=== PATIENT | male | born 1980 | race Caucasian/White ===

== ENCOUNTER 2023-11-10 13:09 | Emergency (ER) | payer OTHER, MEDICAID, SELFPAY ==
--- NOTE | 2023-11-10 13:17 | ED_ITS ---
HPI - General Adult General Chief complaint: Extremity Injury, Upper Stated complaint: r wrist laceration work Time Seen by Provider: 11/10/23 13:14 Source: patient Mode of arrival: ambulatory Limitations: no limitations History of Present Illness ED Provider: Eladia PETIT HPI narrative: 43-year-old male presents with laceration to right wrist, unintentional, patient reports he was cutting sofia at work with a machete, sustaining a laceration. Unclear on last tetanus shot. Patient reports the area was bleeding a lot. He is not on blood thinners. Related Data Allergies Allergy/AdvReac Type Severity Reaction Status Date / Time No Known Allergies Allergy Verified 11/10/23 13:37 [No Known Allergies*] Review of Systems Review of Systems: Yes all other systems are reviewed and are negative PMFSH Past Medical History Attestation statement: The following information was validated with the patient. Source: old records reviewed and nursing notes reviewed Social History Social History Do you have a plan to hurt others: No Plan Physical Exam ED Vital Signs: BMI result Body Mass Index 26.6 vss Appearance: Alert.? Oriented X3.? No acute distress.? Head: Normocephalic, atraumatic, no step-offs or deformities Eyes: Pupils equal, round and reactive to light.? ENT: Pharynx normal.? Neck: Normal inspection.? Neck supple.? CVS: Normal heart rate and rhythm.? Pulses normal.? Respiratory: No respiratory distress.? Breath sounds normal.? Abdomen: Soft and nontender.? Skin: Skin warm and dry.? Normal skin color.? Normal skin turgor.? + 4 cm laceration to right wrist. full rom to R wrist no visualized ligaments or tendons. Bleeding a little but not pulsing blood. 2+ radial pulses b/l. no wrist drop b/l. Normal cap refil b/l. Extremities: No lower extremity edema.? No calf ttp. 5/5 strength to bilateral upper and lower extremities Neuro: Oriented X 3.? No motor deficit.? No sensory deficit. CN 2-12 intact Course Course Course Narrative: RME performed by Ana Cristina Galarza PA-C. Patient is a 43 year old assigned male at presenting to the emergency department with a right forearm laceration. Patient states he accidentally put his right forearm down on a machete while he was cutting sofia. Detailed physical exam and review of systems are deferred to the manager primary care. Patient placed back in the waiting room pending room availability. Reevaluation(s) Reevaluation #1: 6, 4-[address] Patient tolerated procedure well. Minimal blood loss. Time: 13:45 Reevaluation #2: Educated patient on diagnosis and treatment plan, answered all question, patient verbalizes understanding. At this time patient will be discharged home, advised to return with new or worsening symptoms. Educated on worrisome signs and symptoms and when to return. At this time I feel comfortable discharge home. Time: 13:45 Medical Decision Making Medical Decision Making MDM Narrative: 43-year-old male presents with laceration to right wrist while cutting sofia accidentally. Physical exam + 4 cm laceration to right wrist. full rom to R wrist no visualized ligaments or tendons. Bleeding a little but not pulsing blood. 2+ radial pulses b/l. no wrist drop b/l. Normal cap refil b/l. History and physical exam concerning for accidental simple laceration. No signs of complex lack. No signs of ligament or tendon injury. No signs of neurovascular compromise, fracture, dislocation, acute threat to limb. Plan irrigation with saline then suturing. Will give tetanus Differential Diagnosis Differential Diagnoses: The differential diagnosis associated with the presentation includes History and physical exam concerning for accidental simple laceration. No signs of complex lack. No signs of ligament or tendon injury. No signs of neurovascular compromise, fracture, dislocation, acute threat to limb. Admission/Observation Consideration of admission/observation: Escalation of care including admission/observation considered [facility] Prescription Management I considered prescription management with: Pain Medication (Educated ibuprofen and Tylenol use.) Critical Care Time Critical Care Time Critical Care Time: No Discharge Plan Discharge Clinical Impression: Laceration of right wrist Patient Disposition: Home, Self-Care Instructions: Laceration (ED) Additional Instructions: Take your medications as prescribed. If you were prescribed antibiotics today, it is important that you take your medication to their entirety, do not skip any doses, do not finish them early. Follow-up with your primary care provider this week. Return to the emergency department with new or worsening symptoms. Such as fevers, chills, chest pain, shortness of breath, nausea, vomiting, dizziness, headache, vision changes, lethargy In case of emergency call 911 Return in 7-10 days for suture removal. You can take ibuprofen every 6 hours Tylenol every 4 hours. Do not exceed maximum daily dose as listed on packaging. Referrals: Physician,Unknown J [Primary Care Provider] - 2 days Stand Alone Forms: Work/School Release Print Language: Jamaican
[2023-11-10 13:36] VITALS: BMI 26.6
--- NOTE | 2023-11-10 13:38 | PC.NURSE ---
6 sutures applied to pt's right forearm by provider. pt tolerated well.
[2023-11-10] MEDS: Diphth,Pertus(ACell),Tet Adult 0.5 ML SYRINGE IM (13:42)
[2023-11-10] MEDS: Bacitracin Oint 0.9 GM PACKET 1 APPL TOPICAL (13:42)
--- NOTE | 2023-11-10 13:44 | PC.NURSE ---
tetanus shot administered per provider order. affected area being cleaned by tech.
[2023-11-10 13:59] VITALS: BP 136/87; PULSE 68; RESP 16; TEMP 36.9; O2SAT 99
[2023-11-10 14:23] VITALS: BP 136/87; PULSE 68; RESP 16; TEMP 36.9; O2SAT 99
== END 2023-11-10 14:23 | disposition home or self-care (01) ==
PROVIDERS: Emergency Provider Emergency Medicine
DX: S51.811A Laceration without foreign body of right forearm, initial encounter (principal); W26.0XXA Contact with knife, initial encounter; Y93.89 Activity, other specified; Y92.513 Shop (commercial) as the place of occurrence of the external cause; Y99.0 Civilian activity done for income or pay; Z23 Encounter for immunization
CPT/HCPCS: 12002; 90471; 90715; 99282; 99284

== ENCOUNTER 2024-02-18 09:59 | Outpatient (REF) | payer OTHER, MEDICAID, SELFPAY ==
[2024-02-18 14:08] LABS: MANUAL DIFF FLAG NO
[2024-02-18 14:11] LABS: Basophils Percent Auto 0.4 % (0-2); Eosinophils Absolute Auto 0.1 X10*3/uL (0.0-0.4); Eosinophils Percent Auto 2.6 % (0-4); Hematocrit 43.4 % (42.0-52.0); Hemoglobin 14.1 g/dl (14.0-18.0); Imm Gran Abs Auto 0.02 X10*3/uL (0.00-0.03); Imm Gran Pct Auto 0.4 % (0.0-0.4); Lymphocytes Absolute Auto 1.6 X10*3/uL (1.2-4.9); Lymphocytes Percent Auto 32.9 % (20-40); Mean Corpuscular HGB Conc 32.5 g/dl (31.0-36.0); Mean Corpuscular Hemoglobin 30.1 pg (27.0-33.0); Mean Corpuscular Volume 92.7 fL (80.0-98.0); Monocytes Absolute Auto 0.4 X10*3/uL (0.1-1.2); Monocytes Percent Auto 7.3 % (2-11); Neutrophils Absolute Auto 2.8 x10*3/uL (2.0-8.3); Neutrophils Percent Auto 56.4 % (45-73); Platelet Count 242 X10*3/uL (160-400); Red Blood Count 4.68 X10*6/uL (4.60-5.80); Red Cell Distribution Width 12.7 % (11.0-16.0); White Blood Count 4.9 X10*3/uL (4.8-10.8)
[2024-02-18 14:40] LABS: Alanine Aminotransferase 25 U/L (0-40); Albumin Level 4.4 g/dL (3.5-5.0); Alkaline Phosphatase 64 U/L (39-117); Anion Gap 12 (12-20); Aspartate Amino Transferase 39 U/L (5-37); Bilirubin Total 0.5 mg/dL (0.0-1.0); Blood Urea Nitrogen 12 mg/dL (9-16); Calcium 9.8 mg/dL (8.4-10.2); Carbon Dioxide 27 mmol/L (22-29); Chloride 105 mmol/L (96-108); Cholesterol 217 mg/dL (<200); Estimated Glomerular Filt Rate > 60; Glucose Random 88 mg/dL (60-115); HDL Cholesterol 43 mg/dL (>40); LDL Cholesterol Calculated 155 mg/dL (<100); Potassium 4.3 mmol/L (3.3-5.1); Sodium 140 mmol/L (135-145); Total Protein 7.6 g/dL (6.5-8.0); Triglycerides 96 mg/dL (<150)
[2024-02-18 14:56] LABS: TSH reflex Free T4 0.47 uIU/mL (0.32-4.0)
[2024-02-19 08:38] LABS: HIV AB/AG Nonreactive (Nonreactive); HIV Num 1 0.07 S/CO (0.00-0.99); ~HepC Num1 0.16 S/CO (0.00-0.79); ~Hepatitis C Antibody Nonreactive (Nonreactive)
== END 2024-02-18 10:00 | disposition home or self-care (01) ==
LOC: HO.CHCLDS 09:59
PROVIDERS: Visit Provider Internal Medicine
DX: E66.3 Overweight (principal)
CPT/HCPCS: 36415; 80053; 80061; 84443; 85025; 86803; 87389

== ENCOUNTER 2024-06-09 08:32 | Outpatient (REF) | payer OTHER, MEDICAID, SELFPAY ==
--- NOTE | ~2024-06-09 | XR_ITS ---
EXAMINATION: XR KNEE, LEFT CLINICAL INFORMATION: left knee pain. COMPARISON: X-ray dated February 12, 2015 report. Images are not available on PACS. TECHNIQUE: Four views of the left knee. FINDINGS: No acute cortical disruption or malalignment. No lytic or blastic lesions. There is preservation of the joint spaces. No suprapatellar bursa joint effusion. No metallic or radiopaque foreign body. No subcutaneous emphysema. XR/XR knee LT 4V IMPRESSION: Normal left knee. Electronically signed by: Jaxon Sosa MD 06/10/2024 08:51 AM [facility]
--- OUTSIDE RECORDS SUMMARY | 2024-06-09 08:59 | XMS_ITS | Encounter Summary ---
Author Organization [employer] [facility] Address [address] [place] [address] [address] [place] [address] Care Team Providers Care Diet Supervisor Name Role Phone Harry Miles MD Primary Care Prov ider Encounter Details Date Type Department Care Team (Latest Contact Info) Description 12/01/2020 Abstract [facility] CONVERSIONS Dental, Provider, DDS Social History Tobacco Use Types Packs/Day Years Used Date Smoking Tobacco: Never Assessed Sex and Gender Information Value Date Recorded Sex Assigned at Male 02/06/2022 10:32 AM EDT Legal Sex Male 10:32 AM EDT Gender Identity Male 02/06/2022 10:32 AM EDT Sexual Orientation Straight 07/31/2022 9: 21 AM EDT documented as of this encounter Plan of Treatment Upcoming Encounters Date Type Department Care Team (Late st Contact Info) Description 06/30/2024 11:00 AM EDT Office Visit [facility] CHC ADULT DENTAL [address] [place] [address] Jaron More DMD [address] [place] [address] documented as of this encounter Visit Diagnoses Not on filedocumented in this encounter Care Teams Diet Supervisor Relationship Specialty Start Date End Date Harry Miles MD [address] [place] [address] PCP - General Internal Medicine 12/22/21 documented as of this encounter
--- OUTSIDE RECORDS SUMMARY | 2024-06-09 08:59 | XMS_ITS | Encounter Summary ---
Author Organization [employer] Address [address] [facility] [address] [place] [address] Care Team Providers Care Underwear Cutter Name Role Phone Harry Miles MD Primary Care Prov ider Reason for Visit * Reason Comments Dentures Encounter Details Date Type Department Care Team ([facility] Contact Info) Description 05/19/2024 11:00 AM EST Office Visit [facility] ADULT DENTAL [address] [place], [place] [phone] Jaron More, DMD [address] [place], [place] [phone] Partial edentulism, class I (Primary Dx) Social History Tobacco Use Types Packs/Day Years Used Date Smoking Tobacco: Never Passive Smoke Exposure: Never Smokeless Tobacco: Never Alcohol Use Standard Drinks/Week Comments Yes 1 (1 standard drink = 0.6 oz pur e alcohol) Depression Answer Date Recorded Patient Health Questionnaire-9 Score 3 02/18/2024 Patient Health Questionnaire-9 Score 3 02/18/2024 Last PHQ-9: Questionnaire Data Not on file 1 04/19/2023 Housing Stability Answer Date Recorded What is your housing situation today? I have [place]ques [place]ado 02/11/[address] you li ve. Do you have problems with any of the following? None of the above 02/11/2024 Food Insecurity Answer Date Recorded Within the past 12 months, y ou worried that your food would run out before you got money to buy more: Never True 02/11/2024 Within the past 12 months,th e food you bought just didn't last and you didn't have enough money to get more: Never True 07/2023 Transportation Answer Date Recorded In the past 12 months, has l ack of transportation kept you from medical appts, meetings, work or from getting things needed for daily living? No 02/11/2024 Utilities Answer Date Recorded In the past 12 months, has t he electric, gas, oil or water company threatened to shut off services in your home? No 02/11/2024 Depression Answer Date Recorded Patient Health Questionnaire-2 Score 1 02/18/2024 Internet Access Answer Date Recorded Internet Access Q1 Yes 02/11/2024 Internet Access Q2 Not on file 02/11/2024 Sex and Gender Information Value Date Recorded Sex Assigned at Male 02/06/2022 10:32 AM EDT Legal Sex Male 10:32 AM EDT Gender Identity Male 02/06/2022 10:32 AM EDT Sexual Orientation Straight 07/31/2022 9: 21 AM EDT documented as of this encounter Progress Notes * Jaron More DMD - 05/19/2024 11:00 AM EST Patient ID: Hugh Chandler is a 43 y.o. male. Time Out: Timeout Date: 05/19/24, Timeout Time: 1106 Location: [facility] Tooth: Mandible Procedure: Dentures Verified the above with patient, medical clerical assistant, and provider. Confirmed via patient's chart, intraorally and by radiographs. Sustainability Officer: not applicable Chief Complaint Patient presents with Dentures Medical Hx: Vitals: There were no vitals taken for this visit. Medications, Med Hx reviewed with patient and updated in chart. Consent Obtained: The risks, benefits, indications, potential complications, and alternatives were explained to the patient and informed consent was obtained with good understanding. Treatment Provided: Dental procedures in this visit D5110 - WAX TRY IN (Completed) Service provider: Jaron More DMD Billing provider: Jaron More DMD [id number] - ADJUNCTIVE GENERAL SERVICES - PROFESSIONAL VISITS - CASE PRESENTATION, SUBSEQUENT TO DETAILED AND EXTENSIVE TREATMENT PLANNING (Completed) Service provider: Jaron More DMD Billing provider: Jaron More DMD Tried in denture(s) with teeth set in wax. -Evaluated for comfort, fit, phonetics, and stability (f, v, s, th sounds; swallow, yawn, etc) -Evaluated for satisfactory esthetics. -Occlusion verified; adjustments to tooth set up made as needed Patient accepts all aspects of prosthesis and consents to proceed with final processing. Sent to Lab for final processing. Lab used: [facility] Lab Due Date: 05/30 Patient discharged alert, oriented, and in stable condition. NV: denture deliver (will need to adjust occlusion) Adzing And Boring Machine Operator: Lucy Shelton Dentist: Jaron More DMD documented in this encounter Plan of Treatment Upcoming Encounters Date Type Department Care Team (Late st Contact Info) Description 06/30/2024 11:00 AM EDT Office Visit [facility] ADULT DENTAL [address] [place] [address] Jaron More DMD [address] [place] [address] Scheduled Orders Name Type Priority Associated Diagnoses Orde r Schedule DENTAL LAB DENTURES AND PARTIALS Dental Routine Ordered: 025 documented as of this encounter Procedures Procedure Name Priority Date/Time Associated Diagnosis Comments WAX TRY IN Routine 05/19/2024 11:00 AM EST Partial edentulism, class I CASE PRESENTATION, DETAILED AND EXTENSIVE TREATMENT PLANNING Routine 05/19/2024 11:00 AM EST Partial edentulism, class I documented in this encounter Visit Diagnoses Diagnosis Partial edentulism, class I- Primary documented in this encounter Additional Health Concerns Assessment Noted Time PHQ-9 Depression Total Score: 3 02/18/20 24 9:20 AM EST documented as of this encounter Care Teams Underwear Cutter Relationship Specialty Start Date End Date Harry Miles MD [address] [place] [address] PCP - General Internal Medicine 12/22/21 documented as of this encounter
--- OUTSIDE RECORDS SUMMARY | 2024-06-09 08:59 | XMS_ITS | Encounter Summary ---
Author Organization [employer] Address [address] [facility] 7t [place] [address] Care Team Providers Care Breadman Name Role Phone Harry Miles MD Primary Care Prov ider Encounter Details Date Type Department Care Team ([facility] st Contact Info) Description 02/19/2024 Orders Only [facility] CHC MED & PEDS [address] [place], [place] [phone] Harry Miles MD [address] [place] [address] Social History Tobacco Use Types Packs/Day Years [...] Description 06/30/2024 11:00 AM EDT Office Visit [facility] ADULT DENTAL [address] [place] [address] Jaron More, AYUSH [address] [place] [address] documented as of this encounter Visit Diagnoses Not on filedocumented in this encounter Additional Health Concerns Assessment Noted Time PHQ-9 Depression Total Score: 3 02/18/20 24 9:20 AM EST documented as of this encounter Care Teams Breadman Relationship Specialty Start Date End Date Harry Miles MD [address] [place] [address] PCP - General Internal Medicine 12/22/21 documented as of this encounter
--- OUTSIDE RECORDS SUMMARY | 2024-06-09 08:59 | XMS_ITS | Encounter Summary ---
Author Organization [employer] Address [address] [facility] [address] [place] [address] Care Team Providers Care Certified Athletic Trainer Name Role Phone Harry Miles MD Primary Care Prov ider Reason for Visit * Reason Onset Date Comments Nurse Triage 08/17/2023 Encounter Details Date Type Department Care Team (Late st Contact Info) Description 08/17/2023 Telephone [facility] [address] [place] [address] Harry Miles MD [address] [place], [place] [phone] Nurse Triage Social History Tobacco Use Types Packs/Day Years Used Date Smoking Tobacco: Never Passive Smoke Exposure: Never Smokeless Tobacco: Never Alcohol Use Standard Drinks/Week Comments Yes 1 (1 standard drink = 0.6 oz pur e alcohol) Sex and Gender Information Value Date Recorded Sex Assigned at Male 02/06/2022 10:32 AM EDT Legal Sex Male 10:32 AM EDT Gender Identity Male 02/06/2022 10:32 AM EDT Sexual Orientation Straight 07/31/2022 9: 21 AM EDT documented as of this encounter Miscellaneous Notes * Telephone Encounter - Jyotsna Zambrano RN - 08/22/2023 9:12 AM EDT TC X1 to pt for status check as it appears pt did not go to [facility]. No answer and VM not set up. * Telephone Encounter - Analia Yanez RN - 08/17/2023 2:49 PM EDT Call returned to Hugh Chandler to triage below. Reports having chest pain x 2 years. Per pt having left sided CP all day today not intermittent. Having some mild dizziness. Mild KWONG and fatigue. Pt alert, speaking in clear full sentences. Pt advised of disposition, agrees to [facility] ER now for exam torule out any cardiac involvement. Reviewed home care advise, ER precautions and reasons to call back. Protocol Used: Chest Pain (Adult) Protocol-Based Disposition: Call EMS 911 Now Sent to team for ER status check PRN. Positive Triage Questions: * Chest pain lasting longer than 5 minutes and over 44 years old * Chest pain lasting longer than 5 minutes, over 30 years old, and at least one cardiac risk factor(e.g., diabetes mellitus, high blood pressure, high cholesterol, smoker, or strong family history of heart disease) * All higher-acuity triage questions were negative Care Advice Discussed: * Reassurance and Education - Fleeting Chest Pains * Reasons To Call Back - Chest pain increases in frequency, duration or severity - Chest pain lasts over 5 minutes - Chest pains persist over 3 days - Difficulty breathing or unusual sweating occurs - You become worse * Telephone Encounter - Hi Martin - 08/17/2023 2:47 PM EDT Symptom: Chest Pain - Adult Outcome: Transfer to a nurse or provider NOW! Reason: Severe pain now The caller accepted this outcome documented in this encounter Plan of Treatment Upcoming Encounters Date Type Department Care Team (Late st Contact Info) Description 06/30/2024 11:00 AM EDT Office Visit [facility] ADULT DENTAL [address] [place] [address] Jaron More, DMD [address] [place] [address] documented as of this encounter Visit Diagnoses Not on filedocumented in this encounter Care Teams Certified Athletic Trainer Relationship Specialty Start Date End Date Harry Miles MD [address] [place] [address] PCP - General Internal Medicine 12/22/21 documented as of this encounter
--- OUTSIDE RECORDS SUMMARY | 2024-06-09 08:59 | XMS_ITS | Clinical Summary ---
Author Organization [employer] [facility] Address [address] [place] [address] Care Team Providers Care Food Safety Auditor Name Role Phone Harry Miles MD Primary Care Prov ider Allergies No known active allergies Medications No known medications Active Problems Problem Noted Date Diagnosed Date Chronic pain of left knee 02/18/2024 Assessment & Plan (02/18/2024 10:37 AM EST): Will send for left knee xray Avoid heavy lifting Apply cold pads, take tylenol/ibuprofen as needed Overweight (BMI 25.0-29.9) 02/18/2024 Assessment & Plan (02/18/2024 10:38 AM EST): Lab workup will be sent for evaluation of related conditions Physical exam 02/18/2024 Assessment & Plan (02/18/2024 10:39 AM EST): Unremarkable, vital signs are stable, no heart murmur, no thyroid nodules, chronic left knee pain xray will be ordered. Encounters Date Type Department Care Team Description 05/19/2024 11:00 AM EST Office Visit [facility] ADULT DENTAL [address] [place] [address] Jaron More, AYUSH Partial edentulism, class I (Primary Dx) 05/01/2024 3:20 PM EST Office Visit [facility] MED & PEDS [address], [place] [phone] Reanna Lincoln MD Blurry vision, bilateral (Primary Dx) 05/01/2024 Travel 04/25/2024 Telephone [facility] [address] [place] [address] Harry Miles MD Referral 04/22/2024 10:00 AM EST Office Visit [facility] ADULT DENTAL [address] [place] [address] Jaron More DMD Dental caries (Primary Dx); Partial edentulism, class I 03/24/2024 9:00 AM EST Office Visit [facility] ADULT DENTAL [address] [place] [address] Jaron More DMD Defective dental methodist (Primary Dx) from Last 3 Months Immunizations Name Administration Dates Next Due Influenza injectable quadrivalent preservative f ree 12/22/2021 Influenza, seasonal, injectable, preservative fr ee 02/18/2024 Tdap 11/10/2023,12/15/2016 Social History Tobacco Use Types Packs/Day Years [...] Orientation Straight 07/31/2022 9: 21 AM EDT Last Filed Vital Signs Vital Sign Reading Time Taken Comments Blood Pressure 134/80 05/01/2024 3:26 PM EST Pulse 60 05/01/2024 3:26 PM EST Temperature 36.6 ??C (97.8 ??F) 05/01/2024 3:26 PM ES T Respiratory Rate 20 05/01/2024 3:26 PM EST Oxygen Saturation 98% 05/01/2024 3:26 PM EST Inhaled Oxygen Concentration - - Weight 82.6 kg (182 lb) 05/01/2024 3:26 PM EST Height 172.7 cm (5' 8 ) 05/01/2024 3:26 PM EST Body Mass Index 27.67 05/01/2024 3:26 PM EST Plan of Treatment Upcoming Encounters Date Type Department Care Team (Late st Contact Info) Description 06/30/2024 11:00 AM EDT Office Visit [facility] ADULT DENTAL [address] [place] [address] Jaron More, DMD [address] [place] [address] Health Maintenance Due Date Last Done Comments CT Colonography 1978 Colonoscopy 1978 Colorectal Cancer Screening 1978 FIT DNA/Cologuard 1978 FIT 1978 FOBT 1978 Sigmoidoscopy 1978 Alcohol/Substance Use Screening 1990 Family Planning (PISQ) 1993 Hepatitis B Vaccines (1 of 3 - 19+ 3-dose series) 1997 COVID-19 Vaccine (2023-2 5 season) 2023 Dental Oral Exam 07/01/2024 01/01/2024, 07/31/2022 Dental Prophylaxis 07/01/2024 01/01/2024, 07/31/2022 Dental X-Ray: Bitewings 01/01/2025 01/01/20 24, 07/17/2023, 07/31/2022 SDOH Screening 02/10/2025 02/11/2024 Depression Screening 02/17/2025 02/18/2024, 02/18/2024 Tobacco Screening 05/19/2025 05/19/2024 Dental X-Ray: Full Mouth 01/01/2027 01/01/2024 Zoster Vaccines (1 of 2) 2028 Lipid Panel 02/17/2029 02/18/2024 DTaP/Tdap/Td Vaccines (3 - T d or Tdap) 11/09/2033 11/10/2023, 12/15/2016 RSV Patients and Patients Aged 60 years or older (1 - 1-dose 75+ series) 2053 HIV Screening Completed 02/18/2024 Hepatitis C Screening Completed 02/18/2024 Influenza Vaccine Completed 02/18/2024, 12/22/2021 HIB Vaccines Aged Out No longer eligi ble based on patient's age to complete this topic HPV Vaccines Aged Out No longer eligi ble based on patient's age to complete this topic Hepatitis A Vaccines Aged Out No long er eligible based on patient's age to complete this topic IPV Vaccines Aged Out No longer eligi ble based on patient's age to complete this topic Meningococcal Vaccine Aged Out No shante susi eligible based on patient's age to complete this topic Pneumococcal Vaccine: Pediatrics (0 to 5 Years) and At-Risk Patients (6 to 49) Years) Aged Out No longer eligible b ased on patient's age to complete this topic RSV under 20 months Aged Out No longe r eligible based on patient's age to complete this topic Rotavirus Vaccines Aged Out No longer eligible based on patient's age to complete this topic Procedures Procedure Name Priority Date/Time Associated Diagnosis Comments CASE PRESENTATION, DETAILED AND EXTENSIVE TREATMENT PLANNING Routine 05/19/2024 11:00 AM EST Partial edentulism, class I WAX TRY IN Routine 05/19/2024 11:00 AM EST Partial edentulism, class I CASE PRESENTATION, DETAILED AND EXTENSIVE TREATMENT PLANNING Routine 04/22/2024 10:00 AM EST Dental caries Partial edentulism, class I BITE REGISTRATION Routine 04/22/2024 10: 00 AM EST Partial edentulism, class I DENTURE IMPRESSION Routine 04/22/2024 10 :00 AM EST Partial edentulism, class I 14 MOD RESIN-BASED COMPOSITE - 3 SURF, POSTERIOR Routine 04/22/2024 10:00 AM EST Dental caries CASE PRESENTATION, DETAILED AND EXTENSIVE TREATMENT PLANNING Routine 03/24/2024 9:00 AM EST Defective dental methodist 10 F(V) RESIN-BASED COMPOSITE - 1 SURF, ANTERIOR Routine 03/24/2024 9:00 AM EST Defective dental methodist 11 F(V) RESIN-BASED COMPOSITE - 1 SURF, ANTERIOR Routine 03/24/2024 9:00 AM EST Defective dental methodist 20 B(V) RESIN-BASED COMPOSITE - 1 SURF, POSTERIOR Routine 03/24/2024 9:00 AM EST Defective dental methodist 12 B(V) RESIN-BASED COMPOSITE - 1 SURF, POSTERIOR Routine 03/24/2024 9:00 AM EST Defective dental methodist HEPATITIS C AB W/REFL TO HCV RNA, QN, PCR Routine 02/18/2024 10:00 AM EST Overweight (BMI 25.0-29.9) HIV 1/2 ANTIGEN/ANTIBODY, FOURTH GENERATION W/RFL Routine 02/18/2024 10:00 AM EST Overweight (BMI 25.0-29.9) LIPID PANEL, STANDARD Routine 02/18/2024 10:00 AM EST Overweight (BMI 25.0-29.9) PROPHYLAXIS - ADULT Routine 01/01/2024 2 :00 PM EDT Dental calculus Defective dental methodist Dental caries Open fracture of tooth, initial encounter INTRAORAL - COMPLETE SERIES OF RADIOGRAPHIC IMAGES Routine 01/01/2024 2:00 PM EDT Dental calculus Defective dental methodist Dental caries Open fracture of tooth, initial encounter PERIODIC ORAL EVALUATION - ESTABLISHED PATIENT Routine 01/01/2024 2:00 PM EDT Dental calculus Defective dental methodist Dental caries Open fracture of tooth, initial encounter from Last 3 Months or Most Recently Relevant to Health Maintenance Results * Hepatitis C Antibody with Reflex to HCV, RNA, Quantitative, Real-Time PCR (02/18/2024 10:00 AM EST) Hepatitis C Antibody Nonreactive Nonreactive [facility] Comment:Antibodies to HCV no t detected; does not exclude early acuteHCV infection. Blood Venous blood specimen / Unknown 02/18/2024 10:00 AM EST 02/18/2024 2:03 PM EST Harry Norris MD LAB BLOOD ORDERABL ES Final Result Performing Organization Address City/[facility]/ZIP Co de Phone Number [facility] [address] [place] [address] [phone] * HIV-1/2 Antigen and Antibodies, Fourth Generation, with Reflexes (02/18/2024 10:00 AM EST) HIV AB/AG Nonreactive Nonreactive [facility] Comment:HIV-1 p24 Ag and/or HIV-1/HIV-2 Ab not detected.A test result that is nonreactive does not exclude thepossibility of exposure to or infection with HIV-1 and/orHIV-2. Nonreactive results in this assay for individualswith prior exposure to HIV-1 and/or HIV-2 may be due toantigen and antibody levels that are below the limit ofdetection of this assay.The Voice Assist HIV Ag/Ab Combo assay result andsupplemental assay results should be interpreted inconjunction with the patient's clinical presentation,history and other laboratory results. If the results areinconsistent with clinical evidence, additional testing issuggested to confirm the result. Blood Venous blood specimen / Unknown 02/18/2024 10:00 AM EST 02/18/2024 2:03 PM EST us Harry Norris MD LAB BLOOD ORDERABL ES Final Result Performing Organization Address City/[facility]/ZIP Co de Phone Number [facility] [address] [place] [address] [phone] * (ABNORMAL) Lipid Panel, Standard (02/18/2024 10:00 AM EST) Triglycerides 96 <150 mg/dL [facility] Comment:Desirable Triglyceri de: less than 150 mg/dLBorderline High Triglyceride 150-199 mg/dLHigh Triglyceride: 200-499 mg/dLVery High Triglyceride: greater than or equal to 5OO mg/dL Cholesterol 217(H) <200 mg/dL [facility] Comment:Desirable Cholestero l: less than 200 mg/dLBorderline High Cholesterol: 200-239 mg/dLHigh Cholesterol: greater than 239 mg/dL LDL Cholesterol Calculated 155(H) <100 mg/dL [facility] Comment:Desirable LDL: less than 100 mg/dLNear Optimal/Above Optimal LDL: 110- 129 mg/dLBorderline High LDL: 130-159 mg/dLHigh LDL: 160-189 mg/dLVery High LDL: greater than or equal to 190 mg/dL HDL Cholesterol 43 >40 mg/dL [facility] Comment:Desirable HDL: great er than 40 mg/dL Note: This HDL assay may give artificially low results in patients with liver disease. Blood Venous blood specimen / Unknown 02/18/2024 10:00 AM EST 02/18/2024 2:03 PM EST us Harry Norris MD LAB BLOOD ORDERABL ES Final Result [facility] [address] [place] [address] [phone] from Last 3 Months or Most Recently Relevant to Health Maintenance Insurance [address] [place] [address] [facility] STAND ADULT Care Teams Food Safety Auditor Relationship Specialty Start Date End Date CliftonHarry Mustafa MD [address] [place] [address] [place] [id number] PCP - General Internal Medicine 12/22/21
== END 2024-06-09 08:33 | disposition home or self-care (01) ==
LOC: HO.HMGCX 08:32
PROVIDERS: PCP Internal Medicine; Visit Provider Internal Medicine
DX: M25.562 Pain in left knee (principal); G89.29 Other chronic pain
CPT/HCPCS: 73564

== ENCOUNTER → 2024-06-09 08:38 | Outpatient (BNV) | payer OTHER, MEDICAID, SELFPAY | PROVIDERS: PCP Internal Medicine; Visit Provider Radiology Diagnostic Radiology | DX: M25.562 Pain in left knee (principal) | CPT/HCPCS: 73564 ==

== ENCOUNTER 2024-06-15 13:42 | Emergency (ER) | payer MEDICAID, SELFPAY ==
--- NOTE | ~2024-06-15 | CT_ITS ---
CLINICAL HISTORY: headache CT head without contrast Comparison: None Findings: No intra-axial mass, midline shift, hydrocephalus, or acute hemorrhage. No significant atrophy-like change or white matter disease. Small focus of mucosal thickening within the right sphenoid sinus. No air-fluid levels. Clear mastoid air cells and middle ears. The orbits are within normal limits. No skull fracture. IMPRESSION: 1. No acute intracranial findings. This document has been electronically signed by: Olivia Garcia MD on 06/15/2024 15:23:42
--- NOTE | ~2024-06-15 | XR_ITS ---
CLINICAL HISTORY: Chest pain 1 view chest x-ray Comparison: None Findings: No consolidation or effusion. Heart size is normal. No acute fracture. IMPRESSION: 1. No acute findings. This document has been electronically signed by: Olivia Garcia MD on 06/15/2024 18:10:42
[2024-06-15 13:46] VITALS: BP 152/87; PULSE 93; RESP 18; TEMP 36.6; O2SAT 98; BMI 29.0
--- NOTE | 2024-06-15 13:51 | ECG_ITS ---
Test Reason : chest pain Blood Pressure : */* mmHG Vent. Rate : 71 BPM Atrial Rate : 71 BPM P-R Int : 136 ms QRS Dur : 82 ms QT Int : 370 ms P-R-T Axes : 31 -6 -5 degrees QTcB Int : 402 ms Normal sinus rhythm Normal ECG No previous ECGs available Referred By: Mejia Delgado Electronically Signed By: MATT PITT
--- NOTE | 2024-06-15 13:52 | ED.GENADULT ---
HPI - General Adult General Chief complaint: General Medical Stated complaint: headache and chest pain Time Seen by Provider: 06/15/24 18:43 Source: patient Mode of arrival: ambulatory Limitations: no limitations History of Present Illness ED Provider: Mejia Delgado [facility] narrative: 43 yold male with pmh of HTN presents to the ED for 5 days of headache and slight left sided chest pain. patient denies any loss of vision, slurred speech, paralysis of extremities, dizziness, nausea, vomiting, neck pain, or facial droop Related Data Previous Rx's ?Medication ?Instructions ?Recorded ketorolac 10 mg tablet 10 mg PO Q6H PRN pain 5 days #20 06/15/24 tabs Allergies Allergy/AdvReac Type Severity Reaction Status Date / Time No Known Allergies Allergy Verified 06/15/24 13:50 [No Known Allergies*] Review of Systems Review of Systems: headache and chest pain Yes all other systems are reviewed and are negative PENDING SALE TO [facility] Social History Social History Advance Directives: No Advance Directives Information Provided: No Physical Exam ED Vital Signs: Vital Signs - 24 hr 06/15/24 13:46 06/15/24 18:40 Temperature 98 F 97.9 F Pulse Rate 93 77 Respiratory Rate 18 20 Blood Pressure 152/87 H 137/90 H Pulse Oximetry 98 99 Oxygen Delivery Method Room Air Room Air BMI result Body Mass Index 29.0 Const General: cooperative, healthy appearing, comfortable, no acute distress, well developed, alert, awake and Physically active Orientation/consciousness: patient oriented x3 HENMT Head: Yes normal to inspection, Yes No palpable skull fracture present, Yes normocephalic and Yes atraumatic Ears: hearing grossly normal bilaterally, external ears normal, TM's normal bilaterally, TM normal on the right, TM normal on the left, EAC's normal, mastoids normal and no periauricular adenopathy Throat: Yes posterior oropharynx normal, Yes tonsils normal and Yes uvula midline Eyes General: appearance normal, both eyes and all related structures Visual Millard: normal visual millard by confrontation Alignment and Position: alignment normal Periorbital: periorbital findings normal Eyelids: Yes eyelids normal Conjunctivae: conjunctivae normal Sclerae: sclerae normal Corneas: corneas normal Pupils: Equal, round and reactive pupils present EOM: EOMs intact bilaterally Direct Ophthalmoscopy: normal light reflex Neck Neck: Yes normal visual inspection, Yes full ROM, Yes no lymphadenopathy, Yes no meningeal signs, Yes trachea midline, Yes supple, No anterior neck swelling and No tender Chest Chest palpation & inspection: normal inspection of the chest and normal palpation of entire chest wall Resp Effort & Inspection: normal respiratory effort and able to speak in complete sentences Auscultation: clear to auscultation bilaterally Cardio Jugular venous distension: no JVD Heart sounds: S1 normal heart sound present and S2 normal heart sound present GI Inspection: Yes normal to inspection Palpation (GI): Soft to palpation, not firm, nontender, no guarding and not rigid General: Yes no CVA tenderness Back/Spine/Pelvis Back: no CVA tenderness and No back tenderness Skin General skin exam: no rashes or lesions noted, elasticity normal and turgor normal Neuro General: patient oriented x3, gait normal, tone normal, moves all extremities, Normal light touch and pain sensation, no meningeal signs, no focal motor deficits, CN's II-XI intact bilaterally and normal sensation to monofilament Cranial nerves: Yes Equal, round and reactive pupils present Extrem General: Yes normal to inspection, Yes full ROM and Yes capillary refill normal Psych Appearance: grossly normal, well kempt and not disheveled NIH Stroke Scale Internal: Initial- Upon Arrival Level of Consciousness: Alert Level of Consciousness Questions: Answers both questions correctly Level of Consciousness Commands: Performs both tasks correctly Best Gaze: Normal Visual: No visual loss Facial Palsy: Normal Motor Arm (Right): No drift Motor Arm (Left): No drift Motor Leg (Right): No drift Motor Leg (Left): No drift Limb Ataxia: Absent Sensory: Normal Best Language: No aphasia Dysarthia: Normal Extinction and Inattention: No abnormality Score: 0 Course Course Course Narrative: RME: 43-year-old male presents to ED for headache for the past 4 days with chest pain. Patient denies any slurred speech, facial droop or paralysis of extremities. Patient denies any nausea vomiting dizziness. NIH score is 0. Labs EKG head CT scan ordered. Medications Administered Discontinued Medications Generic Name Dose Route Start Last Admin Trade Name Freq PRN Reason Stop Dose Admin Acetaminophen 650 mg 06/15/24 18:42 06/15/24 18:48 Acetaminophen 325 Mg Tablet PO 06/15/24 18:43 650 mg ONCE ONE Administration Ketorolac Tromethamine 30 mg 06/15/24 18:42 06/15/24 18:47 Ketorolac Tromethamine 30 Mg/Ml Vial IM 06/15/24 18:43 30 mg ONCE ONE Administration Medical Decision Making Medical Decision Making [facility] Narrative: 43-year-old male presents to ED for headache with chest pain for the past 4-5 days without any neuro deficits. NIH score is 0. Headache improved to 5 without medication. Toradol Tylenol given. Head CT scan normal. One troponin after chest pain for 4-5 days is negative. Not suspecting PE. Heart score is 0. Chest x-ray normal. EKG negative STEMI. Not suspect CHF. Not suspect a meningitis, brain aneurysm, cauda dissection, or stroke. Patient explained worrisome signs and informed to return to the ED immediatley. Visions 20/20. Differential Diagnosis Differential Diagnoses: The differential diagnosis associated with the presentation includes Admission/Observation Consideration of admission/observation: Escalation of care including admission/observation considered Lab Data [facility] Lab Attestation statement: I reviewed the patient's lab results. 06/15/24 14:22 06/15/24 14:22 Labs: Lab Results 06/15/24 Range/Units 14:22 WBC 5.9 (4.8-10.8) X10*3/uL RBC 4.62 (4.60-5.80) X10*6/uL Hgb 14.2 (14.0-18.0) g/dl Hct 41.6 L (42.0-52.0) % MCV 90.0 (80.0-98.0) fL MCH 30.7 (27.0-33.0) pg MCHC 34.1 (31.0-36.0) g/dl RDW 12.3 (11.0-16.0) % Plt Count 206 (160-400) X10*3/uL MPV 10.3 (9.4-12.4) fL Immature Gran % (Auto) 0.2 (0.0-0.4) % Neut % (Auto) 59.8 (45-73) % Lymph % (Auto) 29.5 (20-40) % Pleasants % (Auto) 7.8 (2-11) % Eos % (Auto) 2.4 (0-4) % Baso % (Auto) 0.3 (0-2) % Lymph # (Auto) 1.8 (1.2-4.9) X10*3/uL Pleasants # (Auto) 0.5 (0.1-1.2) X10*3/uL Eos # (Auto) 0.1 (0.0-0.4) X10*3/uL Baso # (Auto) 0.0 (0.0-0.2) X10*3/uL Abs Immat Gran (auto) 0.01 (0.00-0.03) X10*3/uL Absolute Neuts (auto) 3.6 (2.0-8.3) x10*3/uL Absolute Nucleated RBC 0.000 (0.0-0.012) X10*3/uL Nucleated RBC % (auto) 0.0 (0.0-0.2) /100WBC PT 11.0 (10.9-12.4) SEC INR 0.9 (0.9-1.1) APTT 32.4 (26.0-36.8) SEC Sodium 142 (135-145) mmol/L Potassium 4.1 (3.3-5.1) mmol/L Chloride 108 (96-108) mmol/L Carbon Dioxide 26 (22-29) mmol/L Anion Gap 12 (12-20) BUN 15 (9-16) mg/dL Creatinine 1.04 (0.5-1.4) mg/dL Estim Creat Clear Calc 92.9 Estimated GFR > 60 Random Glucose 79 (60-115) mg/dL Calcium 9.3 (8.4-10.2) mg/dL Total Bilirubin 0.3 (0.0-1.0) mg/dL AST 33 (5-37) U/L ALT 36 (0-40) U/L Alkaline Phosphatase 83 (39-117) U/L Troponin I High Sens < 2.7 (<3.5-35.0) ng/L B-Natriuretic Peptide < 10 (<100) pg/mL Total Protein 7.7 (6.5-8.0) g/dL Albumin 4.1 (3.5-5.0) g/dL Independent Interpretation I performed an independent interpretation of an: EKG (Negative STEMI) and CT Scan Radiology Impression Discussion of test interpretation with radiology: I have reviewed the radiologist's reading. Independent Historian Clinical information obtained from an independent historian. History obtained from or confirmed by: Other (patient) Prescription Management I considered prescription management with: Pain Medication Discharge Plan Discharge Clinical Impression: Headache Patient Disposition: Home, Self-Care Instructions: Acute Headache (ED) Additional Instructions: Return to the ED immediately for any worsening headache, slurred speech, facial droop, paralysis of extremities, loss of vision, neck pain, chest pain, shortness of breath, fever, chills, neck stiffness, photophobia, or any other concerning symptoms. Recommend follow-up with primary care provider. Do not take any other NSAIDs such as Aleve, naproxen, Motrin, ibuprofen, meloxicam and etc while taking ketorolac. This can lead to increased internal bleeding. CLINICAL HISTORY: headache CT head without contrast Comparison: None Findings: No intra-axial mass, midline shift, hydrocephalus, or acute hemorrhage. No significant atrophy-like change or white matter disease. Small focus of mucosal thickening within the right sphenoid sinus. No air-fluid levels. Clear mastoid air cells and middle ears. The orbits are within normal limits. No skull fracture. IMPRESSION: 1. No acute intracranial findings. This document has been electronically signed by: Olivia Garcia MD on 06/15/2024 15:23:42 Prescriptions: New ketorolac 10 mg tablet 10 mg PO Q6H PRN (Reason: pain) 5 Days Qty: 20 0RF Rx Instructions: received 30mg IM in the ED. Stand Alone Forms: Work/School Release Interventions: ED Discharge Assessment Last Done: 06/15/24 19:11 Discharge Date/Time: 06/15/24 19:00 Print Language: Yi
[2024-06-15 14:29] LABS: Basophils Percent Auto 0.3 % (0-2); Eosinophils Absolute Auto 0.1 X10*3/uL (0.0-0.4); Eosinophils Percent Auto 2.4 % (0-4); Hematocrit 41.6 % (42.0-52.0); Hemoglobin 14.2 g/dl (14.0-18.0); Imm Gran Abs Auto 0.01 X10*3/uL (0.00-0.03); Imm Gran Pct Auto 0.2 % (0.0-0.4); Lymphocytes Absolute Auto 1.8 X10*3/uL (1.2-4.9); Lymphocytes Percent Auto 29.5 % (20-40); MANUAL DIFF FLAG NO; Mean Corpuscular HGB Conc 34.1 g/dl (31.0-36.0); Mean Corpuscular Hemoglobin 30.7 pg (27.0-33.0); Mean Platelet Volume 10.3 fL (9.4-12.4); Monocytes Absolute Auto 0.5 X10*3/uL (0.1-1.2); Monocytes Percent Auto 7.8 % (2-11); Neutrophils Absolute Auto 3.6 x10*3/uL (2.0-8.3); Neutrophils Percent Auto 59.8 % (45-73); Platelet Count 206 X10*3/uL (160-400); Red Blood Count 4.62 X10*6/uL (4.60-5.80); Red Cell Distribution Width 12.3 % (11.0-16.0); White Blood Count 5.9 X10*3/uL (4.8-10.8)
[2024-06-15 14:37] LABS: INTERNATIONAL NORM RATIO 0.9 (0.9-1.1)
[2024-06-15 14:40] LABS: Partial Thromboplastin Time 32.4 SEC (26.0-36.8)
[2024-06-15 14:50] LABS: Alanine Aminotransferase 36 U/L (0-40); Albumin Level 4.1 g/dL (3.5-5.0); Alkaline Phosphatase 83 U/L (39-117); Anion Gap 12 (12-20); Aspartate Amino Transferase 33 U/L (5-37); B Type Natriuretic Peptide < 10 pg/mL (<100); Bilirubin Total 0.3 mg/dL (0.0-1.0); Blood Urea Nitrogen 15 mg/dL (9-16); Calcium 9.3 mg/dL (8.4-10.2); Carbon Dioxide 26 mmol/L (22-29); Chloride 108 mmol/L (96-108); Creatinine Clr Calc Pharmacy 92.9; Estimated Glomerular Filt Rate > 60; Glucose Random 79 mg/dL (60-115); Potassium 4.1 mmol/L (3.3-5.1); Sodium 142 mmol/L (135-145); Total Protein 7.7 g/dL (6.5-8.0)
[2024-06-15 14:53] LABS: Troponin-I High Sensitivity < 2.7 ng/L (<3.5-35.0)
[2024-06-15 18:40] VITALS: BP 137/90; PULSE 77; RESP 20; TEMP 36.6; O2SAT 99
[2024-06-15] MEDS: Ketorolac Tromethamine 30 MG/ML VIAL IM (18:47)
[2024-06-15] MEDS: Acetaminophen 325 MG TABLET 650 MG PO (18:48)
[2024-06-15 19:11] VITALS: BP 137/90; PULSE 77; RESP 20; TEMP 36.6; O2SAT 99
== END 2024-06-15 19:00 | disposition home or self-care (01) ==
PROVIDERS: Physician Assistant; Emergency Provider Emergency Medicine Emergency Medical Services
DX: R51.9 Headache, unspecified (principal); R07.89 Other chest pain; Z79.899 Other long term (current) drug therapy
CPT/HCPCS: 36415; 70450; 71045; 80053; 83880; 84484; 85025; 85610; 85730; 93005; 96372; 99283; 99284; J1885

== ENCOUNTER → 2024-06-15 13:51 | Outpatient (BNV) | payer OTHER, MEDICAID, SELFPAY | PROVIDERS: Visit Provider Radiology Diagnostic Radiology | DX: R51.9 Headache, unspecified (principal); R07.9 Chest pain, unspecified | CPT/HCPCS: 70450; 71045 ==

== ENCOUNTER → 2024-06-15 13:51 | Outpatient (BNV) | payer MEDICAID, SELFPAY | PROVIDERS: Emergency Provider Emergency Medicine Emergency Medical Services; Visit Provider Internal Medicine | DX: R07.9 Chest pain, unspecified (principal) | CPT/HCPCS: 93010 ==

== ENCOUNTER 2025-02-19 15:38 | Outpatient (REF) | payer MEDICAID, SELFPAY ==
--- NOTE | ~2025-02-19 | XR_ITS ---
EXAMINATION: XR ELBOW, RIGHT CLINICAL INFORMATION: pain lateral elbow, no trauma COMPARISON: None available. TECHNIQUE: AP, lateral, and oblique views of the right elbow. FINDINGS: Mild degenerative spurring along the anterior ulnohumeral joint. No loose bodies, fracture or dislocation seen. The anterior and posterior fat pad is normal. The soft tissues are normal. 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 Electronically signed by: Héctor Swann MD 02/19/2025 04:21 PM [facility]
--- OUTSIDE RECORDS SUMMARY | 2025-02-19 15:00 | XMS_ITS | Encounter Summary ---
Author Organization [employer] Address [address] [facility] 7t [place] [address] Care Team Providers Care Dive Supervisor Name Role Phone Harry Miles MD Primary Care Prov ider Reason for Referral * Consultation (Routine) - Authorized Specialty Diagnoses / Procedures Referred By Elizabeth shearer Referred To Contact Orthopaedic Surgery Diagnoses Right elbow pain Right lateral epicondylitis Heaven Montesinos MD [address] [place] [address] Phone: tel: fax: [facility] [address] [place] [address] Phone: tel: Referral ID Status Reason Start Date Expiration Date Visits Requested Visits Authorized [id number] Authorized Specialty Services Required 5 02/19/2026 6 6 Encounter Details Date Type Department Care Team (Latest Contact Info) Description 02/19/2025 3:00 PM EST Office Visit [facility] [address] [place] [address] [phone] Heaven Montesinos MD [address] [place] [address] [phone] Right elbow pain (Primary Dx); Right lateral epicondylitis Social History Tobacco Use Types Packs/Day Years Used Date Smoking Tobacco: Never Passive Smoke Exposure: Never Smokeless Tobacco: Never Alcohol Use Standard Drinks/Week Comments Not Currently 1 (1 standard drink = 0.6 oz pur e alcohol) Depression Answer Date Recorded Patient Health Questionnaire-9 Score 10 07/14/2024 Patient Health Questionnaire-9 Score 10 07/14/2024 Last PHQ-9: Questionnaire Data Not on file 0 07/14/2024 Housing Stability Answer Date Recorded What is [...] Answer Date Recorded Patient Health Questionnaire-2 Score 4 07/14/2024 Internet Access Answer Date Recorded Internet Access Q1 Yes 02/11/2024 Internet Access Q2 Not on file 02/11/2024 Sex and Gender Information Value Date Recorded Sex Assigned at Male 02/06/2022 10:32 AM EDT Legal Sex Male 10:32 AM EDT Gender Identity Male 02/06/2022 10:32 AM EDT Sexual Orientation Straight 07/31/2022 9: 21 AM EDT documented as of this encounter Last Filed Vital Signs Vital Sign Reading Time Taken Comments Blood Pressure 149/97 02/19/2025 3:16 PM EST Pulse 86 02/19/2025 3:16 PM EST Temperature 37.4 C (99.4 F) 02/19/2025 3:16 PM EST Respiratory Rate 16 02/19/2025 3:16 PM EST Oxygen Saturation 97% 02/19/2025 3:16 PM EST Inhaled Oxygen Concentration - - Weight 93 kg (205 lb) 02/19/2025 3:16 PM EST Height 170.2 cm (5' 7 ) 02/19/2025 3:16 PM EST Body Mass Index 32.11 02/19/2025 3:16 PM EST documented in this encounter Progress Notes * Heaven Montesinos MD - 02/19/2025 3:00 PM EST Subjective Hugh Chandler, age 44 years Right Elbow Pain Hugh Chandler reports right elbow pain that has persisted for almost 4 to 5 years, initially mildbut worsening over the past 2 to 3 months. He describes the pain as feeling like a needle sensation, which intensifies with continued use and pressure, especially during work activities involving lifting and repetitive motion. The pain is localized to the right elbow and does not radiate to the hand. He notes increased discomfort with cold weather. He reports swelling in the area and mild tenderness. No history of tick bites. He denies pain in the hand. No prior evaluation or treatment for thiscondition prior to the current visit. Objective Blood pressure (!) 149/97, pulse 86, temperature 99.4 ??F (37.4 ??C), temperature source Temporal, resp. rate 16, height 5' 7 (1.702 m), weight 205 lb (93 kg), SpO2 97%. Physical Exam Musculoskeletal: Right elbow: Effusion present. No swelling or deformity. Normal range of motion. Tenderness present. Comments: Edema noted on the right elbow. Nontender over the olecranon. Mildly tender on the medialside of the elbow. No warmth or redness. Assessment & Plan Right elbow pain Orders: XR Elbow 3+ Views Right; Future Referral to Orthopaedic Surgery; Future Right lateral epicondylitis - Right elbow pain attributed to tendonitis. No evidence of infection. Chronicity noted, worsening over past 2-3 months. - Ordered right elbow X-ray to rule out other pathology due to prolonged symptoms. Prescribed high-dose ibuprofen for inflammation, to be taken with food. Prescribed oral steroids (prednisone) for inflammation. Provided elbow band for support and swelling reduction. Recommended rest from work for one week. Advised ice application to affected area. Given symptoms present for more than 5 years, referred to orthopedics for possible steroid injection; patient consented to referral and notified to cancel if symptoms improve prior to appointment. Physical therapy discussed as an option if needed. Orders: predniSONE (Deltasone) 20 MG tablet; 2 tabs po daily for 5 days ibuprofen 800 MG tablet; Take 1 tablet (800 mg) by mouth every 8 (eight) hours if needed for moderate pain or fever. Referral to Orthopaedic Surgery; Future This note was drafted using Ambient (AI) technology. The patient/patient's guardian has been informed and has consented to the use of this technology: Yes documented in this encounter Plan of Treatment Upcoming Encounters Date Type Department Care Team (Late st Contact Info) Description 02/27/2025 9:30 AM EST Office Visit [facility] [address] [place] [address] Jeffery Tejada Scheduled Referrals Name Type Priority Associated Diagnoses Orde r Schedule Referral to Orthopaedic Surgery Outpatient Referral Routine Right elbow pain Right lateral epicondylitis Expected: 02/19/2025 (Approximate), Expires: 02/19/2026 documented as of this encounter Procedures Procedure Name Priority Date/Time Associated Diagnosis Comments XR ELBOW 3+ VIEWS RIGHT Routine 02/19/2025 4:09 PM EST Right elbow pain documented in this encounter Results * XR Elbow 3+ Views Right (02/19/2025 4:09 PM EST) Anatomical Region Laterality Modality Upper Extremities, Elbow Right Radiogr aphic Imaging 02/19/2025 4:09 PM EST Narrative 02/19/2025 4:24 PM EST [address] [address] XRay Report Signed Patient: Hugh Chandler MR#: [id number] : 1980 Acct:[id number] Age/Sex: 44 / M ADM Date: 02/19/25 [facility]: Heaven Montesinos MD Ordering Physician: Heaven Montesinos MD Date of Service: 02/19/25 Procedure(s): XR elbow RT min 3V Accession Number(s): [id number] cc: Harry Miles MD; Heaven Montesinos MD Reason for Exam: pain lateral elbow, no trauma EXAMINATION: XR ELBOW, RIGHT CLINICAL INFORMATION: pain lateral elbow, no trauma COMPARISON: None available. TECHNIQUE: AP, lateral, and oblique views of the right elbow. FINDINGS: Mild degenerative spurring along the anterior ulnohumeral joint. No loose bodies, fracture or dislocation seen. The anterior and posterior fat pad is normal. The soft tissues are normal. 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 Electronically signed by: Héctor Swann MD 02/19/2025 04:21 PM EST RP Dictated By: Héctor Swann MD Signed By: <Electronically signed by Héctor Swann MD in OV> 02/19/25 1621 DD/ 1609 TD/TT: 02/19/25 1612 Talk Show Host: [facility] [place] Note Donotuseinterpreter, Image - 02/19/2025 [place] [address] XRay Report Signed Patient: David Chandler#: [id number] : 1980Acct:[id number] Age/Sex: 44 / MADM Date: 02/19/25 Loc: .[facility] Attending Dr: Heaven Montesinos MD Ordering Physician: Heaven Montesinos MD Date of Service: 02/19/25 Procedure(s): XR elbow RT min 3V Accession Number(s): [id number] cc: Harry Miles MD; Heaven Montesinos MD Reason for Exam: pain lateral elbow, no trauma EXAMINATION: XR ELBOW, RIGHT CLINICAL INFORMATION: pain lateral elbow, no trauma COMPARISON: None available. TECHNIQUE: AP, lateral, and oblique views of the right elbow. FINDINGS: Mild degenerative spurring along the anterior ulnohumeral joint. No loose bodies, fracture or dislocation seen. The anterior and posterior fat pad is normal. The soft tissues are normal. 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 Electronically signed by: Héctor Swann MD 02/19/2025 04:21 PM EST RP Dictated By: Héctor Swann MD Signed By: <Electronically signed by Héctor Swann MD in OV> 02/19/25 1621 DD/ 1609 TD/TT: 02/19/25 1612 Talk Show Host: [facility] us Heaven Montesinos MD IMG XR PROCEDURES Final Re sult documented in this encounter Visit Diagnoses Diagnosis Right elbow pain- Primary Pain in joint, upper arm Right lateral epicondylitis documented in this encounter Additional Health Concerns Assessment Noted Time PHQ-9 Depression Total Score: 10 025 10:08 AM EDT documented as of this encounter Care Teams Dive Supervisor Relationship Specialty Start Date End Date Harry Miles MD [address] [place] [id number] PCP - General Internal Medicine 12/22/21 documented as of this encounter
--- OUTSIDE RECORDS SUMMARY | 2025-02-19 18:35 | XMS_ITS | Encounter Summary ---
Author Organization [employer] Address [address] [facility] 7t [place] [address] Care Team Providers Care Academic Records Specialist Name Role Phone Harry Miles MD Primary Care Prov ider Encounter Details Date Type Department Care Team (Latest Contact Info) Description 12/01/2020 Abstract [facility] Dental, Provider, DDS Social History [...] Description 02/27/2025 9:30 AM EST Office Visit [facility] [address] [place] [address] Jeffery Tejada documented as of this encounter Visit Diagnoses Not on filedocumented in this encounter Care Teams Academic Records Specialist Relationship Specialty Start Date End Date Harry Miles MD [address] [place] [address] PCP - General Internal Medicine 12/22/21 documented as of this encounter
--- OUTSIDE RECORDS SUMMARY | 2025-02-19 18:35 | XMS_ITS | Encounter Summary ---
Author Organization [employer] Address [address] [facility] [address] [place] [address] Care Team Providers Care Conductor Yard Name Role Phone Harry Miles MD Primary Care Prov ider Reason for Visit * Reason Onset Date Comments Nurse Triage 08/17/2023 Encounter Details Date Type Department Care Team (Late st Contact Info) Description 08/17/2023 Telephone [facility] [address] [place] [address] Harry Miles MD [address] [place], [place] [phone] Nurse Triage Social History Tobacco Use Types [...] encounter Miscellaneous Notes * Telephone Encounter - Jyostna Zambrano RN - 08/22/2023 9:12 AM EDT TC X1 to pt for status check as it appears [place] [facility] No answer and VM not set up. [...] sentences. Pt advised of disposition, agrees to [facility] now for exam torule out any [...] Description 02/27/2025 9:30 AM EST Office Visit [facility] [address] [place] [address] Jeffery Tejada documented as of this encounter Visit Diagnoses Not on filedocumented in this encounter Care Teams Conductor Yard Relationship Specialty Start Date End Date Harry Miles MD [address] [place] [address] PCP - General Internal Medicine 12/22/21 documented as of this encounter
--- OUTSIDE RECORDS SUMMARY | 2025-02-19 18:35 | XMS_ITS | Encounter Summary ---
Author Organization [employer] Address [address] [facility] [address] 7[address] [place] [address] Care Team Providers Care Public Policy Professor Name Role Phone Harry Miles MD Primary Care Prov ider Encounter Details Date Type Department Care Team (Latest Contact Info) Description 02/19/2025 Travel Social History Tobacco Use Types Packs/Day Years [...] Description 02/27/2025 9:30 AM EST Office Visit [facility] [address] [place] [address] Jeffery Tejada documented as of this encounter Visit Diagnoses Not on filedocumented in this encounter Additional Health Concerns Assessment Noted Time PHQ-9 Depression Total Score: 10 025 10:08 AM EDT documented as of this encounter Care Teams Public Policy Professor Relationship Specialty Start Date End Date Harry Miles MD [address] [place] [address] PCP - General Internal Medicine 12/22/21 documented as of this encounter
--- OUTSIDE RECORDS SUMMARY | 2025-02-19 18:35 | XMS_ITS | Encounter Summary ---
Author Organization [facility] Address [address] [facility] [address] [place] [address] Care Team Providers Care Installation & Maintenance Executive Name Role Phone Harry Miles MD Primary Care Prov ider Encounter Details Date Type Department Care Team ([facility] st Contact Info) Description 02/19/2024 Orders Only [facility] [address] [place], [place] [phone] Harry Miles MD [address] [place], [place] [phone] Social History Tobacco Use Types Packs/Day Years [...] Description 02/27/2025 9:30 AM EST Office Visit [facility] [address] [place] [address] Jeffery Tejada documented as of this encounter Visit Diagnoses Not on filedocumented in this encounter Additional Health Concerns Assessment Noted Time PHQ-9 Depression Total Score: 3 02/18/20 24 9:20 AM EST documented as of this encounter Care Teams Installation & Maintenance Executive Relationship Specialty Start Date End Date Harry Miles MD [address] [place] [address] PCP - General Internal Medicine 12/22/21 documented as of this encounter
--- OUTSIDE RECORDS SUMMARY | 2025-02-19 18:35 | XMS_ITS | Encounter Summary ---
Author Organization [employer] Address [address] [facility] 7[address] [place] [address] Care Team Providers Care Cardiac Rehabilitation Program Director Name Role Phone Harry Miles MD Primary Care Prov ider Reason for Visit * Reason Onset Date Comments Nurse Triage 02/19/2025 Encounter Details Date Type Department Care Team ([facility] Contact Info) Description 02/19/2025 Telephone [facility] [address] [place], [place] [phone] Harry Miles MD [address] [place], [place] [phone] Nurse Triage Social History Tobacco Use Types [...] encounter Miscellaneous Notes * Telephone Encounter - Daniela Fisher RN - 02/19/2025 12:28 PM EST Noted. Patient is scheduled to be seen in [facility] today at 1:40pm for elbow pain. No further triage needed at this time. * Telephone Encounter - Christina Little - 02/19/2025 11:57 AM EST Symptom: Elbow Pain - Not From Injury Outcome: Schedule an urgent appointment (within 1 hour) or talk to a nurse or provider soon Reason: Can't use the elbow normally Contact pt at [phone] documented in this encounter Plan of Treatment Upcoming Encounters Date Type Department Care Team (Late st Contact Info) Description 02/27/2025 9:30 AM EST Office Visit [facility] [address] [place] [address] Jeffeyr Tejada documented as of this encounter Visit Diagnoses Not on filedocumented in this encounter Additional Health Concerns Assessment Noted Time PHQ-9 Depression Total Score: 10 025 10:08 AM EDT documented as of this encounter Care Teams Cardiac Rehabilitation Program Director Relationship Specialty Start Date End Date Harry Miles MD [address] [place], [place] [address], [place] [address] PCP - General Internal Medicine 12/22/21 documented as of this encounter
--- OUTSIDE RECORDS SUMMARY | 2025-02-19 18:35 | XMS_ITS | Clinical Summary ---
Author Organization [employer] Address [address] [place] [address] Care Team Providers Care Heavy Threader Name Role Phone Harry Miles MD Primary Care Prov ider Allergies No known active allergies Medications * This document contains information received from the source organization and may not represent a complete record from that organization. naproxen (Naprosyn) 500 MG tablet Take 1 tab orally bid with meals prn headache 60 tablet 1 5 Active SUMAtriptan (Imitrex) 50 MG tabletIndications :Orgasmic headache TAKE 1 TABLET BY MOUTH ONCE 1 HOUR PRIOR INTERCOURSE 9 tablet 3 5 Active propranolol (Inderal) 40 MG tablet Take 1 tablet (40 mg) by mouth 2 times daily. 60 tablet 11 5 026 Active FLUoxetine (PROzac) 20 MG capsule TAKE 1 CAPSULE BY MOUTH EVERY DAY 90 capsule 5 Active predniSONE (Deltasone) 20 MG tabletIndications :Right lateral epicondylitis 2 tabs po daily for 5 days 10 tablet 5 Active ibuprofen 800 MG tabletIndications :Right lateral epicondylitis Take 1 tablet (800 mg) by mouth every 8 (eight) hours if needed for moderate pain or fever. 30 tablet 5 025 Active Active Problems Problem Noted Date Diagnosed Date Chronic midline low back pain without sciatica 0 09/22/2024 Assessment & Plan (09/22/2024 12:33 PM EDT): Will order a lumbar xray, recently he lifted a heavy object, currently refers symptoms have improved Moderate major depression (CMS/HCC) 07/14/2024 Assessment & Plan (09/22/2024 12:32 PM EDT): Patient not taking prescription daily, told to take it daily for at least 3 months, will reevaluate in 1 month, no suicidal/homicidal ideas reported Anxiety 07/10/2024 Assessment & Plan (08/21/2024 10:59 AM EDT): No suicidal/homicidal ideas, symptoms have not improved since last visit, wants to start treatment, will provide fluoxetine, risk vs benefits discussed, will follow up in 1 month Assessment & Plan (07/10/2024 2:40 PM EDT): No suicidal/homicidal ideas, will refer to for evaluation Orgasmic headache 07/10/2024 Assessment & Plan (07/10/2024 2:41 PM EDT): Symptoms are recurrent will give a trial of propanolol, call back if not improving Chronic pain of left knee 02/18/2024 Assessment [...] Encounters Date Type Department Care Team Description 02/19/2025 3:00 PM EST Office Visit [facility] [address] [place] [address] Heaven Montesinos MD Right elbow pain (Primary Dx); Right lateral epicondylitis 02/19/2025 Travel 02/19/2025 Telephone [facility] [address] [place] [address] Harry Miles MD Nurse Triage 12/25/2024 Refill [facility] [address] [place] [address] Harry Miles MD 12/19/2024 Telephone [facility] [address] [place] [address] Harry Miles MD Nurse Triage 12/02/2024 Telephone [facility] [address] [place] [address] Harry Miles MD No Show 12/02/2024 Telephone [facility] [address] [place] [address] Harry Miles MD no show 12/02/2024 Travel 12/01/2024 Telephone [facility] [address] [place] [address] Harry Miles MD chart prep 11/26/2024 Travel 11/25/2024 Telephone [facility] [address] [place] [address] Harry Miles MD chart prep 11/19/2024 Telephone [facility] [address] [place] [address] Harry Miles MD from Last 3 Months Immunizations Immunization Administration Dates Next Due Influenza injectable quadrivalent [...] Mass Index 32.11 02/19/2025 3:16 PM EST Plan of Treatment Upcoming Encounters Date Type Department Care Team (Late st Contact Info) Description 02/27/2025 9:30 AM EST Office Visit [facility] ADULT DENTAL [address] [place] [address] Jeffery Tejada Health Maintenance Due Date Last Done Comments CT Colonography 1978 Colonoscopy 1978 Colorectal Cancer Screening 1978 FIT DNA/Cologuard 1978 FIT 1978 FOBT 1978 Sigmoidoscopy 1978 Family Planning (PISQ) 1993 Hepatitis B Vaccines (1 of 3 - 19+ 3-dose series) 1997 COVID-19 Vaccine ( - 2024-2 6 season) 2024 Influenza Vaccine (#1) 2024 , 12/22/2021 Dental X-Ray: Bitewings 01/01/2025 01/01/20, 07/17/2023, 07/31/2022 Depression Monitoring 01/13/2025 07/14/2024 , 07/14/2024 Dental Oral Exam 01/21/2025 07/21/2024, 01/01/2024, 07/31/2022 Dental Prophylaxis 01/21/2025 07/21/2024, 01/01/2024, 07/31/2022 SDOH Screening 02/10/2025 02/11/2024 Alcohol/Substance Use Screening 08/21/2025 08/21/2024 Disability Screening 09/22/2025 09/22/2024 Tobacco Screening 02/19/2026 02/19/2025 Dental X-Ray: Full Mouth 01/01/2027 01/01/2024 Zoster Vaccines (1 of 2) 2028 Lipid Panel 02/17/2029 02/18/2024 DTaP/Tdap/Td Vaccines (3 - T d or Tdap) 11/09/2033 11/10/2023, 12/15/2016 RSV Patients and Patients Aged 60 years or older (1 - 1-dose 75+ series) 2053 HIV Screening Completed 02/18/2024 Hepatitis C Screening Completed 02/18/2024 HIB Vaccines Aged Out No longer eligi [...] patient's age to complete this topic Meningococcal B Vaccine Aged Out No l onger eligible based on patient's age to complete this topic Meningococcal Vaccine Aged Out No shante susi eligible based on patient's age to complete this topic Pneumococcal Vaccine: Pediatrics (0 to 5 Years) and At-Risk Patients (6 to 49) Years Aged Out No longer eligible b ased [...] 02/19/2025 4:09 PM EST Right elbow pain PROPHYLAXIS - ADULT Routine 07/21/2024 1 1:00 AM EDT PERIODIC ORAL EVALUATION - ESTABLISHED PATIENT Routine 07/21/2024 11:00 AM EDT HEPATITIS C AB W/REFL TO HCV RNA, QN, PCR Routine 02/18/2024 10:00 AM EST Overweight (BMI 25.0-29.9) HIV 1/2 ANTIGEN/ANTIBODY, FOURTH GENERATION W/RFL Routine 02/18/2024 10:00 AM EST Overweight (BMI 25.0-29.9) LIPID PANEL, STANDARD Routine 02/18/2024 10:00 AM EST Overweight (BMI 25.0-29.9) INTRAORAL - COMPLETE SERIES OF RADIOGRAPHIC IMAGES Routine 01/01/2024 2:00 PM EDT Dental calculus Defective dental scientologist Dental caries Open fracture of tooth, initial encounter from Last 3 Months or Most Recently Relevant to Health Maintenance Results * XR Elbow 3+ Views Right (02/19/2025 4:09 PM EST) Anatomical Region Laterality Modality Upper Extremities, Elbow Right Radiogr aphic Imaging 02/19/2025 4:09 PM EST Narrative 02/19/2025 4:24 PM EST [address] [address] XRay Report Signed Patient: Hugh Chandler MR#: [id number] : 1980 Acct:[id number] Age/Sex: 44 / M ADM Date: 02/19/25 Loc: [facility] Attending Dr: Heaven Montesinos MD Ordering Physician: Heaven Montesinos MD Date of Service: 02/19/25 Procedure(s): XR elbow RT min 3V Accession Number(s): [id number] cc: Harry Miles MD; Heaven Montesinos MD [...] by: Héctor Swann MD 02/19/2025 04:21 PM [facility] [place]ict[place] By: Héctor Swann MD Signed By: <Electronically signed by Héctor Swann MD in OV> 02/19/25 1621 DD/ 1609 TD/TT: 02/19/25 1612 Thread Reeler: [facility] Procedure Note Donotuseinterpreter, Image - 02/19/2025 [place] [address] XRay Report Signed Patient: David Chandler#: [id number] : 1980Acct:[id number] Age/Sex: 44 / MADM Date: 02/19/25 Loc: [facility] Attending Dr: Heaven Montesinos MD Ordering Physician: Heaven Montesinos MD Date of Service: 02/19/25 Procedure(s): XR elbow RT min 3V Accession Number(s): [id number] cc: Harry Miles MD; Heaven Montesinos MD [...] 02/19/25 1621 DD/ 1609 TD/TT: 02/19/25 1612 Thread Reeler: [facility] us Heaven Montesinos MD IMG XR PROCEDURES Final Re sult * Hepatitis C Antibody with Reflex to HCV, RNA, Quantitative, Real-Time PCR (02/18/2024 10:00 AM EST) Hepatitis C Antibody Nonreactive Nonreactive [facility] Comment:Antibodies to HCV no t detected; does not exclude early acuteHCV infection. Blood Venous blood specimen / Unknown 02/18/2024 10:00 AM EST 02/18/2024 2:03 PM EST us Harry Norris MD LAB BLOOD ORDERABL ES Final Result [facility] [address] [place] [phone] * HIV-1/2 Antigen and Antibodies, Fourth Generation, with Reflexes (02/18/2024 10:00 AM EST) HIV AB/AG Nonreactive Nonreactive [facility] Comment:HIV-1 p24 Ag and/or HIV-1/HIV-2 Ab not detected.A test result that is nonreactive does not exclude thepossibility of exposure to or infection with HIV-1 and/orHIV-2. Nonreactive results in this assay for individualswith prior exposure to HIV-1 and/or HIV-2 may be due toantigen and antibody levels that are below the limit ofdetection of this assay.[facility] [employer] HIV Ag/Ab Combo assay result andsupplemental assay results should be interpreted inconjunction with the patient's clinical presentation,history and other laboratory results. If the results areinconsistent with clinical evidence, additional testing issuggested to confirm the result. Blood Venous blood specimen / Unknown 02/18/2024 10:00 AM EST 02/18/2024 2:03 PM EST us Harry Norris MD LAB BLOOD ORDERABL ES Final Result [facility] [address] [place] [phone] * (ABNORMAL) Lipid Panel, Standard (02/18/2024 10:00 AM EST) Triglycerides 96 <150 mg/dL [facility] Comment:Desirable Triglyceri de: less than 150 mg/dLBorderline High Triglyceride 150-199 mg/dLHigh Triglyceride: 200-499 mg/dLVery High Triglyceride: greater than or equal to 5OO mg/dL Cholesterol 217(H) <200 mg/dL [facility] Comment:Desirable Cholestero l: less than 200 mg/dLBorderline High Cholesterol: 200-239 mg/dLHigh Cholesterol: greater than 239 mg/dL LDL Cholesterol Calculated 155(H) <100 mg/dL [facility] Comment:Desirable LDL: less than 100 mg/dLNear Optimal/Above Optimal LDL: 110- 129 mg/dLBorderline High LDL: 130-159 mg/dLHigh LDL: 160-189 mg/dLVery High LDL: greater than or equal to 190 mg/dL HDL Cholesterol 43 >40 mg/dL [facility] Comment:Desirable HDL: great er than 40 mg/dL Note: This HDL assay may give artificially low results in patients with liver disease. Blood Venous blood specimen / Unknown 02/18/2024 10:00 AM EST 02/18/2024 2:03 PM EST us Harry Norris MD LAB BLOOD ORDERABL ES Final Result [facility] [address] [place] [phone] from Last 3 Months or Most Recently Relevant to Health Maintenance Insurance [facility] C3 DENT[facility] MEDICAID STAND ADULT Care Teams Heavy Threader Relationship Specialty Start Date End Date CliftonHarry Mustafa MD [address] [place] [address] STEFAN Hodges [phone] PCP - General Internal Medicine 12/22/21
== END 2025-02-19 15:39 | disposition home or self-care (01) ==
LOC: HO.HHCX 15:38
PROVIDERS: PCP Internal Medicine; Visit Provider Family Medicine
DX: M25.521 Pain in right elbow (principal)
CPT/HCPCS: 73080

== ENCOUNTER → 2025-02-19 15:43 | Outpatient (BNV) | payer MEDICAID, SELFPAY | PROVIDERS: PCP Internal Medicine; Visit Provider Radiology Diagnostic Radiology | DX: M19.022 Primary osteoarthritis, left elbow (principal) | CPT/HCPCS: 73080 ==